=== PATIENT | female | born 1970 | race Two or more races ===

== ENCOUNTER 2019-02-28 15:39 | Emergency (ER) | payer OTHER ==
--- NOTE | 2019-02-28 16:21 | ER Document Report ---
HPI - HPI Patient complains to provider of: vaginal discharge Time Seen by Provider: 02/28/19 16:11 Onset: Last week Onset/Duration: Sudden Quality of pain: No pain Pain Level: Denies Context: This 48-year-old female relatively healthy with history of high blood pressure presents emergency department with vaginal irritation discharge and odor for a week and a half. Patient reports last time she had sex was in November. She did not use protection. Denies other symptoms such as abdominal pain fever vomiting diarrhea. Denies pain with void. Associated Symptoms: None Exacerbated by: Denies Relieved by: Denies Similar symptoms previously: No Recently seen / treated by doctor: No - REPRODUCTIVE Reproductive: DENIES: : Past Medical History - General Information source: Patient Last Menstrual Period: 2 weeks ago - Social History Smoking Status: Unknown if Ever Smoked Cigarette use (# per day): No Frequency of alcohol use: None Drug Abuse: None Family History: CAD, Malignancy Patient has suicidal ideation: No Patient has homicidal ideation: No - Past Medical History Cardiac Medical History: Reports: Hx Hypertension Neurological Medical History: Reports: Hx Migraine Past Surgical History: Reports: Hx Tubal Ligation - Immunizations Immunizations up to date: Yes Hx Diphtheria, Pertussis, Tetanus Vaccination: Yes Vertical Provider Document - CONSTITUTIONAL Agree With Documented VS: Yes Exam Limitations: No Limitations General Appearance: WD/WN, No Apparent Distress - INFECTION CONTROL TRAVEL OUTSIDE OF THE [place] IN LAST 30 DAYS: No - HEENT HEENT: Atraumatic, Normocephalic - NECK Neck: Normal Inspection, Supple. negative: Lymphadenopathy-Left, Lymphadenopathy-Right - RESPIRATORY Respiratory: Breath Sounds Normal, No Respiratory Distress - CARDIOVASCULAR Cardiovascular: Regular Rate, Regular Rhythm - GI/ABDOMEN Gastrointestinal: Abdomen Soft, Abdomen Non-Tender - REPRODUCTIVE Female Genitalia: Normal Inspection. negative: CMT, Adnexal Pain-Right, Adnexal Pain-Left Notes: + white discharge - BACK Back: negative: CVA Tenderness-Right, CVA Tenderness-Left - MUSCULOSKELETAL/EXTREMETIES Musculoskeletal/Extremeties: ONEIDA ROBERTS - NEURO Level of Consciousness: Awake, Alert, Appropriate Motor/Sensory: No Motor Deficit - DERM Integumentary: Warm, Dry Course - Re-evaluation Re-evalutation: 02/28/19 48-year-old female presents with vaginal discharge reports that has odor. Denies pain with void. Patient tolerated procedure well Patient opted to wait for results and not have treatment. Reports call her if she needs to come back. STD negative. Patient had opted to leave without treatment for STDs because she really did not think she had any. She reported call me if I need to come back. Patient does not need to come back. Patient was treated for bacterial vaginosis based on wet prep +3 epi,+3 bacterial ,vaginal discharge and odor. Dictation of this chart was performed using voice recognition software; therefore, there may be some unintended grammatical errors. 02/28/19 20:44 Urine Color YELLOW 02/28/19 16:42 Urine Appearance CLOUDY 02/28/19 16:42 Urine pH 6.0 (5.0-9.0) 02/28/19 16:42 Ur Specific [place] 1.013 02/28/19 16:42 Urine Protein NEGATIVE mg/dL (NEGATIVE) 02/28/19 16:42 Urine Glucose (UA) NEGATIVE mg/dL (NEGATIVE) 02/28/19 16:42 Urine Ketones NEGATIVE mg/dL (NEGATIVE) 02/28/19 16:42 Urine Blood NEGATIVE (NEGATIVE) 02/28/19 16:42 Urine Nitrite NEGATIVE (NEGATIVE) 02/28/19 16:42 Ur Leukocyte Esterase NEGATIVE (NEGATIVE) 02/28/19 16:42 Urine WBC (Auto) 3 /HPF 02/28/19 16:42 Urine RBC (Auto) 0 /HPF 02/28/19 16:42 02/28/19 20:45 - Vital Signs Vital signs: Temp Pulse Resp BP Pulse Ox 98.2 F 94 16 107/55 L 98 02/28/19 15:46 02/28/19 15:46 02/28/19 15:46 02/28/19 15:46 02/28/19 15:46 Procedures - Pelvic Exam Pelvic exam Time completed: 16:41 - vaginal discharge Cultures obtained: Yes Wet prep obtained: Yes Herpes culture obtained: No POC sent to lab: No Foreign body removed: No Bimanual exam performed: Yes Witnessed by: mary warner Discharge - Discharge Clinical Impression: Vaginal irritation, Bacterial vaginosis Condition: Stable Disposition: HOME, SELF-CARE Instructions: Metronidazole ([facility]), [facility] [place], Vaginosis, Bacterial ([facility]) Additional Instructions: *You have been evaluated for vaginal discharge, bacterial vaginosis The STD cultures are pending. You will be contacted if they are positive and you need treatment. *Take medication as prescribed *Follow up with your [facility] CLERK or the health department for recheck *Return to ED for worsening condition, changes, needs Prescriptions: Metronidazole [Flagyl 500 mg Tablet] 500 mg PO BID #14 tablet Referrals: ARIK KATZ MD [Primary Care Provider] - Follow up as needed
[2019-02-28 16:54] LABS: BACTERIA (WET MOUNT) 3+ BACTERIA SEEN; EPITHELIALS (WET MOUNT) 3+ EPITHELIALS SEEN; RBCS (WET MOUNT) NO RBCS SEEN; T.VAGINALIS (WET MOUNT) NO TRICHOMONAS SEEN; WBCS (WET MOUNT) NO WBCS SEEN; YEAST (WET MOUNT) NO YEAST SEEN
[2019-02-28 17:06] LABS: APPEARANCE,URINE CLOUDY; BILIRUBIN,URINE NEGATIVE (NEGATIVE); COLOR,URINE YELLOW; GLUCOSE, URINE NEGATIVE (NEGATIVE); KETONES,URINE NEGATIVE (NEGATIVE); LEUKOCYTE ESTERASE,URINE NEGATIVE (NEGATIVE); NITRITE,URINE NEGATIVE (NEGATIVE); PROTEIN,URINE NEGATIVE (NEGATIVE); URINE SPECIFIC GRAVITY 1.013; UROBILINOGEN,URINE NEGATIVE mg/dL (<2.0)
[2019-02-28 17:17] VITALS: BP 111/56
[2019-02-28 18:50] LABS: CHLAM PCR NOT DETECTED (NOT DETECT)
== END 2019-02-28 17:20 | disposition home or self-care (01) ==
LOC: ER 15:39
DX: N76.0 Acute vaginitis (principal); B96.89 Other specified bacterial agents as the cause of diseases classified elsewhere; I10 Essential (primary) hypertension
CPT/HCPCS: 81001; 81025; 87086; 87210; 87491; 87591; 99283